=== PATIENT | male | born 1995 | race Caucasian/White ===

== ENCOUNTER 2019-07-07 15:38 | Emergency (ER) | payer SELFPAY ==
[~2019-07-07] VITALS: Ht 167.6 cm; Wt 72.7 kg
[~2019-07-07 15:38] MED LIST: ACET500C5 PO; BACITUD TOP; BACTDS PO; CEPH-443 PO; CLIN300C10 PO; HYDR-4011 PO; IBUP-1542 PO; IBUP-1561 PO; LOPE2CAP PO; NAPR-985 PO; ONDA4TAB35 PO
[2019-07-07 15:43] VITALS: BP 147/69; PULSE 110; RESP 18; Ht 167.6 cm; Wt 72.7 kg
[2019-07-07] MEDS ORDERED: IBUPROFEN 600 MG TAB PO ONE (16:30)
--- NOTE | 2019-07-07 16:30 | ERD ---
ER Documentation Chief Complaint Chief Complaint L foot pain s/p fall while skateboarding x 2 day HPI Is a 24-year-old male patient presents emergency room with complaint of pain and swelling to left lateral ankle and foot after stepping off of skateboard and twisting his foot 2 days ago. No fall injuring back, upper extremities, neck, head. Patient has been ambulating on the foot however he states the pain and swelling is increasing and is becoming more difficult to walk. Denies chronic medical problems. No prior injury to left foot. ROS All systems reviewed and are negative except as per history of present illness. Medications Home Meds Active Scripts Acetaminophen* (Tylophen*) 500 Mg Capsule, 2 CAP PO Q8H PRN for PAIN AND OR ELEVATED TEMP, #20 CAP Prov:CHUN NICHOLS NP 07/07/19 Ibuprofen* (Motrin*) 600 Mg Tab, 600 MG PO Q6, #30 TAB Prov:CHUN NICHOLS NP 07/07/19 Hydrocodone/Acetaminophen ([place] 5-325 Tablet) 1 Each Tablet, 1 TAB PO Q6H PRN for PAIN, #8 TAB Prov:HAVEN MCMAHON MD 07/30/18 Ibuprofen* (Motrin*) 600 Mg Tab, 600 MG PO Q8 for 5 Days, #15 TAB Prov:HAVEN MCMAHON MD 07/30/18 Clindamycin Hcl* (Clindamycin Hcl*) 300 Mg Capsule, 300 MG PO TID for 10 Days, CAP Prov:HAVEN MCMAHON MD 07/30/18 Bacitracin* (Bacitracin Oint (UD)*) 1 Applic Oint, 1 APPLIC TOP ONCE for 7 Days, #1 TUB 0 Refills APPLY TO Prov:SURJIT PADILLA PA-C 07/18/16 Sulfamethoxazole-Trimethoprim* (Bactrim* DS) 800-160 Mg Tab, 1 TAB PO BID for 7 Days, #14 TAB 0 Refills Prov:SURJIT PADILLA PA-C 07/18/16 Cephalexin* (Keflex*) 500 Mg Capsule, 500 MG PO TID for 7 Days, #14 CAP 0 Refills Prov:SURJIT PADILLA PA-C 07/18/16 Ibuprofen* (Motrin*) 400 Mg Tab, 400 MG PO Q6 for 7 Days, #30 TAB 0 Refills Prov:SURJIT PADILLA PA-C 07/18/16 Naproxen* (Naprosyn*) 500 Mg Tablet, 500 MG PO BID, #14 TAB Prov:YORDY RIVERA DO 10/13/15 Loperamide Hcl* (Imodium*) 2 Mg Capsule, 2 MG PO Q6H PRN for DIARRHEA, #5 CAP MAX 16 mg/day Prov:YORDY RIVERA DO 10/13/15 Ondansetron Hcl* (Zofran* ODT) 4 mg -ODT Tab.disper, 4 MG PO Q4H PRN for NAUSEA AND OR VOMITING, #10 TAB Prov:YORDY RIVERA DO 10/13/15 Allergies Allergies: Coded Allergies: No Known Allergy (Unverified , 07/30/18) PMhx/Soc Medical and Surgical Hx: pt denies Medical Hx, pt denies Surgical Hx History of Surgery: No Anesthesia Reaction: No Hx Neurological Disorder: No Hx Respiratory Disorders: No Hx Cardiac Disorders: No Hx Psychiatric Problems: No Hx Miscellaneous Medical Probl: No Hx Alcohol Use: No Hx Substance Use: No Hx Tobacco Use: No Smoking Status: Never smoker FmHx Family History: No diabetes, No coronary disease, No other Physical Exam Vitals Vital Signs Date Temp Pulse Resp B/P (MAP) Pulse Ox O2 O2 Flow FiO2 Time Delivery Rate 07/07/19 97.9 110 18 147/69 97 15:43 (95) Physical Exam Const: No acute distress Head: Atraumatic Eyes: Normal Conjunctiva, PERRL ENT: Normal External Ears, Nose and Mouth. Neck: Full range of motion. No meningismus. No cervical spinal tenderness. Resp: Clear to auscultation bilaterally Cardio: Regular rate and rhythm, no murmurs Abd: Soft, non tender, non distended. Normal bowel sounds Skin: No petechiae or rashes Back: No midline or flank tenderness, no spinal tenderness Ext: No cyanosis, or abrasions. LLE: no tenderness or swelling at knee, patella midline, FROM of knee/hip, no proximal tenderness of tib/fib, +distal fibula tenderness, +5th metatarsal tenderness, +1st metatarsal tenderness, strength 3/5, ltd ext due to pain, no posterior LLE swelling or tenderness, sensation intact, cap refill <2 sec. Neur: Awake and alert, clear speech, cooperative Psych: Normal Mood and Affect Results 24 hrs Current Medications Medications Dose Sig/Kulwinder Start Time Status Last (Trade) Ordered Route PRN Stop Time Admin Dose Reason Admin Ibuprofen 600 mg ONCE ONCE 07/07/19 DC 07/07/19 (Motrin) PO 16:30 16:29 07/07/19 16:31 Procedures/MDM PROCEDURES/MDM DIAGNOSTIC IMAGING: Read by radiologist. Left ankle x-ray IMPRESSION: Left lateral malleolar soft tissue swelling. No fracture or dislocation. Left foot x-ray IMPRESSION: Unremarkable left foot radiographs. PROCEDURES: Splint Assessment: Neurovascularly intact post splint placement with good fit. -Medications: Ibuprofen Patient tolerated medication well with no adverse reactions. Patient reported improvement in pain. MDM: Patient's extremity symptoms have stabilized while they have been evaluated in the department and are appropriate for outpatient follow up. No evidence of compartment syndrome, neurologic injury, vascular injury, open joint, open fracture, tendon laceration, or foreign body. Patient was placed in splint and provided crutches. Patient was instructed to follow-up with PMD or orthopedic clinic. She has been instructed on RICE and si gns and symptoms of worsening of condition when to seek emergent medical treatment. DISPOSITION and PLAN: RX: Ibuprofen, Tylenol The patient has been discharge home to follow-up with community physician. Departure Diagnosis: Primary Impression: Ankle sprain Encounter type: initial encounter Involved ligament of ankle: unspecified ligament Laterality: left Qualified Codes: S93.402A - Sprain of unspecified ligament of left ankle, initial encounter Condition: Stable CHUN NICHOLS NP Jul 07, 2019 16:30
== END 2019-07-07 18:08 | disposition home or self-care (01) ==
LOC: FTE 15:38
DX: S93.402A Sprain of unspecified ligament of left ankle, initial encounter (principal); V00.131A Fall from skateboard, initial encounter; Y92.9 Unspecified place or not applicable
CPT/HCPCS: 73610